=== PATIENT | male | born 1985 | race African-American/Black ===

== ENCOUNTER 2025-06-14 21:59 | Emergency (ER) | payer OTHER, SELFPAY ==
[2025-06-14 22:02] VITALS: BP 166/119; PULSE 101; TEMP 36.9; O2SAT 98; BMI 27.3
--- NOTE | 2025-06-14 22:17 | XR_ITS ---
[facility] [place] [id number] Patient Name: ZABRINA STEVENSON MRN: [id number] date: 1985 Sex: M Assigned Patient Location: ER Current Patient Location: ED.MAIN Accession/Order Number: [id number] Exam Date: 06/14/2025 22:20 Report Date: 06/15/2025 08:21 At the request of: LATONIA ODOM MD Procedure: XR foot RT min 3V XR foot RT min 3V 06/14/2025 10:26 PM SIGNS AND SYMPTOMS: Acute right foot pain along first digit PROTOCOL: 3 views of the right foot COMPARISON: None FINDINGS: There is a comminuted fracture of the distal phalanx of the great toe with intra-articular extension. Fragments are mildly displaced. There is accompanying soft tissue swelling. The joint spaces are otherwise preserved without evidence of acute displaced fracture otherwise. There is evidence of a healing fracture at the base of the fifth metatarsal. XR/XR foot RT min 3V IMPRESSION: There is a comminuted fracture of the distal phalanx of the great toe with intra-articular extension. Fragments are mildly displaced. There is accompanying soft tissue swelling. Impression dictated by: Mendoza Nicholson M.D. 06/15/2025 8:21 AM Dictation Location: [place] [address] Electronically authenticated by: [id number] Y Date: 06/15/2025 08:21
--- NOTE | 2025-06-14 22:30 | ED_ITS ---
HPI HPI - Extremity Injury (Lower) General Chief Complaint: Extremity Injury, Lower Stated Complaint: LE INJURY Time Seen by Provider: 06/14/25 22:20 Source: patient Mode of arrival: walk-in Limitations: no limitations History of Present Illness HPI Narrative: dropped concrete slab onto his right foot about one hour ago. wearing non steel toe boots. Now presents complaining of pain of the right great toe Related Data Home Medications ?Medication ?Instructions ?Recorded ?Confirmed dextroamphetamine-amphetamine 30 06/14/25 mg tablet Allergies Allergy/AdvReac Type Severity Reaction Status Date / Time No Known Drug Allergies Allergy Verified 06/14/25 22:08 Opioid HPI Opioid Management Most Recent Pain and Opioid Data: Last Pain Scale 6 06/14/25, 23:16 Last ED Pain Assessment 06/14/25, 23:16 Last MAR Pain Assessment 06/14/25, 22:39 Review of Systems ROS Status of ROS 10 or more systems reviewed and unremark able except as noted in history and below PFSH PFSH Social History Little interest or pleasure in doing things: not at all Feeling down, depressed, or hopeless: not at all Exam Constitutional Vital Signs, click to edit/add: Last Vital Signs Temp 98.5 F 06/14/25 22:02 Pulse 101 H 06/14/25 22:02 Resp 16 06/14/25 22:02 BP 166/119 H 06/14/25 22:02 Pulse Ox 98 06/14/25 22:02 O2 Del Method Room Air 06/14/25 22:02 Common normals: no apparent distress, average body habitus, oriented x3, no limitations, healthy appearing, alert and well nourished [facility] Common normals: normocephalic and head/scalp atraumatic Eye Common normals: EOMs intact bilaterally and conjunctivae normal Respiratory Common normals: normal respiratory effort, no retractions, no use of accessory muscles and clear to auscultation bilaterally Cardio Common normals: regular rate, regular rhythm, S1 normal heart sound and S2 normal heart sound Extremity Other: dorsum right great toe ecchymosis and swelling. Distal aspect of toe with normal color. sensation to light touch present but decreased Neuro Common normals: oriented x3, CN's II-XII intact bilaterally, moves all extremities and no focal motor deficits Psych Appearance: grossly normal Course Vital Signs Vital signs: Vital Signs Temperature 98.5 F 06/14/25 22:02 Pulse Rate 101 H 06/14/25 22:02 Respiratory Rate 16 06/14/25 22:02 Blood Pressure 166/119 H 06/14/25 22:02 Pulse Oximetry 98 06/14/25 22:02 Oxygen Delivery Method Room Air 06/14/25 22:02 Temperature 98.5 F 06/14/25 22:02 Pulse Rate 101 H 06/14/25 22:02 Respiratory Rate 16 06/14/25 22:02 Blood Pressure 166/119 H 06/14/25 22:02 Pulse Oximetry 98 06/14/25 22:02 Oxygen Delivery Method Room Air 06/14/25 22:02 MDM - Extremity Injury (Lower) MDM Narrative Medical decision making narrative: dropped cement slab onto right foot and fractured right great toe. Has mod swelling and ecchymosis of the toe. Sensation intact but decreased. distal aspect of toe with normal color. xray with comminuted fracture of the toe. Patient medicated with fentanyl IM and supplied an ortho post op shoe Discharge Plan Discharge Chief Complaint: Extremity Injury, Lower Clinical Impression: Closed fracture of right great toe Patient Disposition: Home, Self-Care Prescriptions / Home Meds: No Action dextroamphetamine-amphetamine 30 mg tablet Print Language: [place] Instructions: Crutch Instructions (ED), Toe Fracture (ED) Additional Instructions: follow up with your orthopedic surgeon next week. Keep foot elevated Referrals: Physician,Non-Staff, MD [Primary Care Provider] - 1 week Discharge Date/Time: 06/14/25 23:21
[2025-06-14] MEDS: FENTANYL CITRATE/PF 100 MCG/2 ML VIAL IM (22:39)
[2025-06-14 23:16] VITALS: BP 141/102; PULSE 73; O2SAT 96
--- NOTE | 2025-06-14 23:22 | PC.NURSE ---
i placed a postop shoes on this patient's right foot and issues crutches to this patient, this patient had past experience using crutches. i gave this patient verbal and written discharge orders along with 1 Rx and a disc and this patient voices yes to understanding these. at time of discharge this patient voices no concerns, needs and shows no signs of distress
== END 2025-06-14 23:21 | disposition home or self-care (01) ==
PROVIDERS: Emergency Provider Internal Medicine
DX: S92.421A Displaced fracture of distal phalanx of right great toe, initial encounter for closed fracture (principal); W22.8XXA Striking against or struck by other objects, initial encounter
CPT/HCPCS: 73630; 96372; 99284; J3010